=== PATIENT | male | born 1995 | race Caucasian/White ===

== ENCOUNTER 2023-04-25 02:12 | Emergency (ER) | payer OTHER ==
[~2023-04-25] VITALS: Ht 188 cm; Wt 81.7 kg
[~2023-04-25 02:12] MED LIST: IBUP800 PO; Ultram50 MG PO
[2023-04-25 02:31] VITALS: BP 141/89
[2023-04-25] MEDS ORDERED: CEPH500 PO (03:51)
[2023-04-25] MEDS ORDERED: ACET500 PO (03:56)
[2023-04-25] MEDS ORDERED: Ibuprofen600 MG PO (03:56)
== END 2023-04-25 04:03 | disposition home or self-care (01) ==
LOC: ER 02:12
DX: S61.211A Laceration without foreign body of left index finger without damage to nail, initial encounter (principal); F17.210 Nicotine dependence, cigarettes, uncomplicated; Z88.0 Allergy status to penicillin; W31.1XXA Contact with metalworking machines, initial encounter; Y99.0 Civilian activity done for income or pay
CPT/HCPCS: 12001; 73120; 90471; 90714; 99283-25; A9270

== ENCOUNTER 2025-01-28 07:04 | Emergency (ER) | payer OTHER ==
[~2025-01-28] VITALS: Ht 182.9 cm; Wt 97.5 kg
[~2025-01-28 07:04] MED LIST changes: +ACET500 PO; +CEPH500 PO; +Ibuprofen600 MG PO
[2025-01-28] MEDS ORDERED: IBUP800 PO (12:13)
[2025-01-28 12:14] VITALS: BP 135/87
== END 2025-01-28 12:11 | disposition home or self-care (01) ==
LOC: ER 07:04
DX: S62.336A Displaced fracture of neck of fifth metacarpal bone, right hand, initial encounter for closed fracture (principal); Z88.0 Allergy status to penicillin; Z79.2 Long term (current) use of antibiotics; Z79.899 Other long term (current) drug therapy; F17.210 Nicotine dependence, cigarettes, uncomplicated; W23.0XXA Caught, crushed, jammed, or pinched between moving objects, initial encounter; Y92.812 Truck as the place of occurrence of the external cause
CPT/HCPCS: 73130; 99283-25

== ENCOUNTER 2025-02-04 11:23 | Day surgery (SDC) | payer OTHER ==
[~2025-02-04] VITALS: Ht 182.9 cm; Wt 99.7 kg
[~2025-02-04 11:23] MED LIST changes: +Lidocaine HCl 2% 10 ML SDA ONE
[2025-02-04] MEDS ORDERED: CeFAZolin Sodium 2,000 MG VIAL ONE (11:32)
[2025-02-04] MEDS ORDERED: HYDROmorphone HCl/Pf 1MG SYR ONE (12:09)
[2025-02-04] MEDS ORDERED: FentaNYL Citrate 50 MCG/ML 2 ML Injection ONE ×2 (12:09→13:19)
[2025-02-04] MEDS ORDERED: Midazolam HCl 1MG / ML 2ML Vial ONE (12:10)
[2025-02-04] MEDS ORDERED: HYDROcodone 5-APAP 325 TAB ONE (13:37)
[2025-02-04 13:48] VITALS: BP 128/81
--- NOTE | 2025-02-04 14:20 | NUR ---
02/04/25 1420 Omar Davis PT REPORTS TOLERABLE PAIN AND NO NAUSEA UPON D/C. FLACC 0/10. HE EXPRESSES READINESS TO RETURN HOME.
== END 2025-02-04 14:27 | disposition home or self-care (01) ==
LOC: ORSCSDS 11:23
PROVIDERS: Orthopaedic Surgery
PROC: 0PSP04Z Reposition Right Metacarpal with Internal Fixation Device, Open Approach (ICD-10-PCS; principal; 2025-02-04 13:15)
DX: S62.336A Displaced fracture of neck of fifth metacarpal bone, right hand, initial encounter for closed fracture (principal); W23.2XXA Caught, crushed, jammed or pinched between a moving and stationary object, initial encounter; F17.210 Nicotine dependence, cigarettes, uncomplicated
CPT/HCPCS: A9270; C1713; C1776; J0690; J1171; J2003; J2250; J2704; J3010; J7120